=== PATIENT | male | born 1990 | race Two or more races ===

== ENCOUNTER 2017-04-12 16:31 | Emergency (ER) | payer OTHER ==
[2017-04-12 16:47] VITALS: BP 122/86; PULSE 87; RESP 18; TEMP 98.4; O2SAT 98
[2017-04-12] MEDS ORDERED: IBUPROFEN 600 MG TAB PO ONE (17:05)
--- NOTE | 2017-04-12 17:08 | EDPHY ---
H & P Time Seen by Provider: 04/12/17 16:51 HPI/ROS: This patient complains of dental pain and neck pain. He explains the he has dental caries intermittently gets tooth infections. Over the past 5 days or so he has had increasing pain to the left lower incisor that has significant decay as well as a right premolar also significant tooth decay in the past he has improved with antibiotics. He requests an antibiotic for this currently. He has been taking ibuprofen 600 mg per 6 hours with partial relief and notes no other exacerbating factors except for some tenderness when he chews food. 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 They had to move the entire household in a 24 hour period which involve a lot of lifting and carrying up and downstairs. He states that his neck pain is moderate intensity paraspinous location bilaterally this tooth pain is moderate currently and severe at times. ROS: No fevers or chills. No other constitutional symptoms HEENT: No facial swelling. No other complaints Pulmonary: No complaints new Cardiovascular: No lightheadedness Neuro: He reports having bilateral arm paresthesias when he 1st wakes up intermittently none currently. No focal numbness or weakness. No lower extremity symptoms. Musculoskeletal: No midline neck or back pain. GI: No nausea vomiting 10 point ROS is otherwise negative. Social History: Moved her household yesterday to new home. 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 He plans to go back [facility] in 2 weeks to see a dentist. Smoking Status: Current every day smoker Physical Exam: Physical Exam Vital signs are normal. General: No acute distress HEENT: Atraumatic. Oropharynx: Patient has significant tooth decay dull left lower canine incisor with associated tenderness mild gingival swelling but no fluctuance. Similarly, a right lower premolar has significant decay down to the gumline with tenderness but no gingival swelling or or fluctuance. No purulent drainage. No submental swelling. No other facial swelling. Eyes: Pupils equal and react to light. Extraocular motions are intact. Neck: Supple with no lymphadenopathy he has paraspinous muscular tenderness bilaterally. However retains full range of motion without increase in symptoms. Lungs: No respiratory distress. Cardiac: Brisk capillary refill is intact throughout. Skin: No rash or pallor. Neuro: GCS 15. Maintains 5/5 strength bilateral upper and lower extremities and 2+ symmetric patellar DTRs bilaterally. with no sensorimotor deficits. Initial differential diagnosis: Toothache due to dental caries/decay, apical abscess, neck muscle strain, doubt discogenic disease or other source of neck pain. I think that is transient arm paresthesias given her bilateral location and brief duration may have been related to hyperventilation. Constitutional: Initial Vital Signs Temperature (C) 36.9 C 04/12/17 16:35 Heart Rate 87 04/12/17 16:35 Respiratory Rate 18 04/12/17 16:35 Blood Pressure 122/86 H 04/12/17 16:35 O2 Sat (%) 98 04/12/17 16:35 O2 Delivery Mode Room Air Allergies/Adverse Reactions: No Known Allergies Allergy (Verified 04/12/17 16:47) Home Medications: Medication Instructions Recorded Methocarbamol [Robaxin 750 mg (*)] 750 - 1,500 mg PO QID PRN #30 tab 04/12/17 Penicillin V Potassium [Pen Vk 500 mg PO TID #42 tab 04/12/17 500mg (*)] traMADol [Ultram 50 mg (*)] 50 - 100 mg PO Q4 PRN #15 tab 04/12/17 MDM/Departure - MDM Medications Given: Discontinued Medications Ibuprofen (Motrin) 600 mg PO EDNOW ONE Stop: 04/12/17 17:06 Last Admin: 04/12/17 17:09 Dose: Not Given ED Course/Re-evaluation: Patient is offered ibuprofen but declines explaining will take ibuprofen home. Discussion: Dental caries with tooth pain but no overt abscess findings, Stef 's angina or other complicating factors. No clinical evidence of sepsis. Neck symptoms , history and findings are consistent with neck muscle strain. No neuro deficits or radicular findings currently. - Depart Disposition: Home, Routine, Self-Care Clinical Impression: Pain due to dental caries Neck muscle strain Qualifiers: Encounter type: initial encounter Qualified Code(s): S16.1XXA - Strain of muscle, fascia and tendon at neck level, initial encounter Condition: Good Instructions: Cervical Strain (ED), Dental Caries (ED), Toothache (ED) Additional Instructions: Diagnoses: 1. Toothache from dental caries 2. Neck muscle strain Plan: Continue ibuprofen-600 mg for 6 hours Add methocarbamol muscle relaxant and Tylenol or tramadol if needed for pain control No driving, alcohol work on the methocarbamol or tramadol. Return for any significant worsening despite the treatment plan Prescriptions: Methocarbamol [Robaxin 750 mg (*)] 750 - 1,500 mg PO QID PRN #30 tab PRN Reason: Muscle Spasms Penicillin V Potassium [Pen Vk 500mg (*)] 500 mg PO TID #42 tab traMADol [Ultram 50 mg (*)] 50 - 100 mg PO Q4 PRN #15 tab PRN Reason: breakthrough pain Referrals: NONE *PRIMARY CARE P,. [Primary Care Provider] - As per Instructions
== END 2017-04-12 17:25 | disposition home or self-care (01) ==
LOC: CED 16:31
DX: S16.1XXA Strain of muscle, fascia and tendon at neck level, initial encounter (principal); K02.9 Dental caries, unspecified; F17.200 Nicotine dependence, unspecified, uncomplicated; X58.XXXA Exposure to other specified factors, initial encounter

== ENCOUNTER → 2017-04-14 | Emergency (ER) | payer OTHER ==
[~2017-04-14] MED LIST: ACETAMINOPHEN 325 MG TAB PO ONE; HYDROCODONE/APAP 5/325 TAB PO ONE; NS 1,000 ML IV ONE
[2017-04-14 09:57] VITALS: TEMP 98; O2SAT 97
[2017-04-14 10:40] LABS: % IMMATURE GRANULYOCYTES 0.6 % (0.0-1.1); ABSOLUTE IMMATURE GRANULOCYTES 0.03 10^3/uL (0.00-0.10); ADD DIFF? NO; ADD MORPH? NO; ADD SCAN? NO; ATYPICAL LYMPHOCYTE FLAG 10 (0-99); FRAGMENT RBC FLAG 0 (0-99); HEMATOCRIT 45.2 % (40.0-51.0); HEMOGLOBIN 16.1 g/dL (13.7-17.5); LEFT SHIFT FLG 0 (0-99); LIPEMIA HEMOLYSIS FLAG 90 (0-99); MEAN CELL HEMOGLOBIN 29.1 pg (27.9-34.1); MEAN CELL HEMOGLOBIN CONCENTR. 35.6 g/dL (32.4-36.7); MEAN CELL VOLUME 81.6 fL (81.5-99.8); MEAN PLATELET VOLUME 9.2 fL (8.7-11.7); PLATELET CLUMPS FLAG 0 (0-99); PLATELET COUNT 280 10^3/uL (150-400); RED BLOOD CELL COUNT 5.54 10^6/uL (4.40-6.38)
[2017-04-14] MEDS: IBUPROFEN 600 MG TAB PO ONE ×2 (10:55→17:49)
[2017-04-14 11:01] LABS: ANION GAP 14 mEq/L (8-16); CALCIUM 8.9 mg/dL (8.5-10.4); CARBON DIOXIDE 24 mEq/l (22-31); CHLORIDE 99 mEq/L (97-110); CREATININE 0.6 mg/dL (0.7-1.3); GLOMERULAR FILTRATION RATE > 60; GLUCOSE 107 mg/dL (70-100); POTASSIUM 3.9 mEq/L (3.5-5.2); SODIUM 137 mEq/L (134-144)
--- NOTE | 2017-04-14 11:34 | EDPHY ---
H & P Time Seen by Provider: 04/14/17 09:44 HPI/ROS: 26-year-old male presents complaining of left-sided toothache that is ongoing he was seen here on April 12 for the same. At that time he was started penicillin, ibuprofen and tramadol and advised to see a dentist as soon as possible. He plans to see a dentist in early May when he returns to [facility]. His other concerned this morning as he feels like he is having difficulty urinating. He was also given Robaxin but has not been taking. Review of systems General no fever no chills no weakness HEENT no eye pain no eye discharge. No eye redness, no sore throat Respiratory no cough, no shortness of breath Cardiac no chest pain, no peripheral edema GI no abdominal pain, no diarrhea, no constipation, no nausea, no vomiting no flank pain, no hematuria, no dysuria, positive difficulty urinating Musculoskeletal no myalgias, no joint pain Heme no easy bruising, no easy bleeding Endo no polyuria, no polydipsia Skin no rashes, no pruritus Neuro no syncope, no dizziness, no headaches Psych is no suicidal ideation, no homicidal ideation Past Medical/Surgical History: no significant past medical history recent history involves a visit on April 12, 2017 for dental caries and likely dental abscess started on penicillin. Social History: Student Smoking Status: Current every day smoker Physical Exam: 26-year-old male alert and oriented moderate distress secondary to tooth pain, nontoxic appearance, afebrile no respiratory distress atraumatic normocephalic oropharynx no swelling, no tongue elevation, tolerating his own secretions left 1st and 2nd molar with severe caries, mild erythema of gum line no drainage no trismus neck supple, nontender lungs clear to auscultation bilaterally Heart regular rate and rhythm without murmur rub or gallop abdomen NABS soft, no CVA tenderness, no suprapubic fullness extremities no cyanosis clubbing or edema skin no rash Constitutional: Initial Vital Signs Temperature (C) 36.6 C 04/14/17 09:46 Heart Rate 78 04/14/17 09:46 Respiratory Rate 18 04/14/17 09:46 Blood Pressure 116/74 04/14/17 09:46 O2 Sat (%) 97 04/14/17 09:46 O2 Delivery Mode Room Air Allergies/Adverse Reactions: No Known Allergies Allergy (Verified 04/12/17 16:47) Home Medications: Medication Instructions Recorded Methocarbamol [Robaxin 750 mg (*)] 750 - 1,500 mg PO QID PRN #30 tab 04/12/17 Penicillin V Potassium [Pen Vk 500 mg PO TID #42 tab 04/12/17 500mg (*)] traMADol [Ultram 50 mg (*)] 50 - 100 mg PO Q4 PRN #15 tab 04/12/17 Acetaminophen [Pain Relief] 325 mg PO Q6 PRN #30 capsule 04/14/17 Hydrocodone/Acetaminophen [[place] 1 - 2 tab PO Q6H PRN #16 tab 04/14/17 5/325 (*)] Ibuprofen 600 mg PO Q8 PRN #30 tablet 04/14/17 Medical Decision Making ED Course/Re-evaluation: patient seen and evaluated for toothache as well as concern that he is having difficulty urinating and he is concerned that his kidneys may be failing. Exam significant for severe caries and likely dental abscess of left lower 1st molar otherwise exam unremarkable labs sent to evaluate kidney function patient hydrated to encourage urination CBC within normal limits BMP within normal limits urinalysis normal impression dental abscess sensation of urinary retention, able to urinate freely, urinalysis normal discussed with pharmacist at times ibuprofen can cause this sensation plan continue penicillin encourage patient to see dentist as soon as possible stopped tramadol and ibuprofen given prescription for [place] - Data Points Laboratory Results: Laboratory Results 04/14/17 10:38 04/14/17 10:38 04/14/17 04/14/17 04/14/17 11:30 10:38 10:38 WBC 4.77 10^3/uL 10^3/uL (3.80-9.50) RBC 5.54 10^6/uL 10^6/uL (4.40-6.38) Hgb 16.1 g/dL g/dL (13.7-17.5) Hct 45.2 % % (40.0-51.0) MCV 81.6 fL fL (81.5-99.8) MCH 29.1 pg pg (27.9-34.1) MCHC 35.6 g/dL g/dL (32.4-36.7) RDW 13.0 % % (11.5-15.2) Plt Count 280 10^3/uL 10^3/uL (150-400) MPV 9.2 fL fL (8.7-11.7) Neut % (Auto) 31.3 % L % (39.3-74.2) Lymph % (Auto) 47.6 % H % (15.0-45.0) [place] % (Auto) 9.0 % % (4.5-13.0) Eos % (Auto) 10.7 % H % (0.6-7.6) Baso % (Auto) 0.8 % % (0.3-1.7) Nucleat RBC Rel Count 0.0 % % (0.0-0.2) Absolute Neuts (auto) 1.49 10^3/uL L 10^3/uL (1.70-6.50) Absolute Lymphs (auto) 2.27 10^3/uL 10^3/uL (1.00-3.00) Absolute Monos (auto) 0.43 10^3/uL 10^3/uL (0.30-0.80) Absolute Eos (auto) 0.51 10^3/uL H 10^3/uL (0.03-0.40) Absolute Basos (auto) 0.04 10^3/uL 10^3/uL (0.02-0.10) Absolute Nucleated RBC 0.00 10^3/uL 10^3/uL (0-0.01) Immature Gran % 0.6 % % (0.0-1.1) Immature Gran # 0.03 10^3/uL 10^3/uL (0.00-0.10) Sodium 137 mEq/L mEq/L (134-144) Potassium 3.9 mEq/L mEq/L (3.5-5.2) Chloride 99 mEq/L mEq/L (97-110) Carbon Dioxide 24 mEq/l mEq/l (22-31) Anion Gap 14 mEq/L mEq/L (8-16) BUN 12 mg/dL mg/dL (7-23) Creatinine 0.6 mg/dL L mg/dL (0.7-1.3) Estimated GFR > 60 Glucose 107 mg/dL H mg/dL (70-100) Calcium 8.9 mg/dL mg/dL (8.5-10.4) Urine Color YELLOW Urine Appearance CLEAR Urine pH 6.0 (5.0-7.5) Ur Specific [place] 1.015 (1.002-1.030) Urine Protein NEGATIVE (NEGATIVE) Urine Ketones NEGATIVE (NEGATIVE) Urine Blood NEGATIVE (NEGATIVE) Urine Nitrate NEGATIVE (NEGATIVE) Urine Bilirubin NEGATIVE (NEGATIVE) Urine Urobilinogen 0.2 EU EU (0.2-1.0) Ur Leukocyte Esterase NEGATIVE (NEGATIVE) Urine Glucose NEGATIVE (NEGATIVE) Medications Given: Discontinued Medications Acetaminophen (Tylenol) 325 mg PO EDNOW ONE Stop: 04/14/17 10:29 Last Admin: 04/14/17 10:56 Dose: 325 mg Acetaminophen (Tylenol) 650 mg PO EDNOW ONE Stop: 04/14/17 10:29 Last Admin: 04/14/17 10:58 Dose: 650 mg Hydrocodone Bitart/Acetaminophen ([place] 5/325) 2 tab PO EDNOW ONE Stop: 04/14/17 12:01 Last Admin: 04/14/17 12:07 Dose: 2 tab Sodium Chloride (Ns) 1,000 mls @ 0 mls/hr IV ONCE ONE PRN Reason: Wide Open Stop: 04/14/17 10:28 Last Admin: 04/14/17 10:41 Dose: 1,000 mls Departure - Departure Disposition: Home, Routine, Self-Care Clinical Impression: Dental abscess Condition: Good Instructions: Dental Abscess (ED) Additional Instructions: Your blood studies are normal. There is no sign of kidney dysfunction. Referrals: NONE *PRIMARY CARE P,. [Primary Care Provider] - As per Instructions Stand Alone Forms: Work Excuse Prescriptions: Acetaminophen [Pain Relief] 325 mg PO Q6 PRN #30 capsule PRN Reason: Pain, Moderate Hydrocodone/Acetaminophen [[place] 5/325 (*)] 1 - 2 tab PO Q6H PRN #16 tab PRN Reason: Pain, Moderate Ibuprofen 600 mg PO Q8 PRN #30 tablet PRN Reason: Pain, Moderate
[2017-04-14 11:37] LABS: COLOR YELLOW; LEUKOCYTE ESTERASE,URINE NEGATIVE (NEGATIVE); NITRITE,URINE NEGATIVE (NEGATIVE)
[2017-04-14 13:33] VITALS: BP 123/79; PULSE 76; RESP 16
== END | disposition home or self-care (01) ==
LOC: CED 09:42
DX: K04.7 Periapical abscess without sinus (principal); F17.200 Nicotine dependence, unspecified, uncomplicated
CPT/HCPCS: 80048-PO; 81003-PO; 85025-PO

== ENCOUNTER 2017-04-17 15:11 | Emergency (ER) | payer OTHER ==
[2017-04-17 15:24] VITALS: BP 117/72; PULSE 84; RESP 16; TEMP 97.7; O2SAT 97
--- NOTE | 2017-04-17 15:32 | EDPHY ---
H & P Time Seen by Provider: 04/17/17 15:17 HPI/ROS: 26-year-old male presents complaining of dental pain. No Fevers no chills no nausea vomiting diarrhea. No difficulty urinating. No difficulty swallowing no tongue swelling. This is patient's 3rd visit for similar complaints, he plans to see a dentist when he returns to [facility] in approximately 2-3 weeks Past Medical/Surgical History: No significant past medical history Social History: Student Smoking Status: Current every day smoker Physical Exam: 26-year-old male alert and oriented no acute distress nontoxic appearance no trismus no drooling, afebrile Atraumatic normocephalic Oropharynx Multiple dental caries, no gross edema or erythema and no purulent discharge No tongue elevation Neck supple Lungs clear to auscultation Heart regular rate and rhythm without murmur rub or gallop Skin no rash Constitutional: Initial Vital Signs Temperature (C) 36.5 C 04/17/17 15:21 Heart Rate 84 04/17/17 15:21 Respiratory Rate 16 04/17/17 15:21 Blood Pressure 117/72 04/17/17 15:21 O2 Sat (%) 97 04/17/17 15:21 O2 Delivery Mode Room Air Allergies/Adverse Reactions: No Known Allergies Allergy (Verified 04/17/17 15:24) Home Medications: Medication Instructions Recorded Methocarbamol [Robaxin 750 mg (*)] 750 - 1,500 mg PO QID PRN #30 tab 04/12/17 Penicillin V Potassium [Pen Vk 500 mg PO TID #42 tab 04/12/17 500mg (*)] traMADol [Ultram 50 mg (*)] 50 - 100 mg PO Q4 PRN #15 tab 04/12/17 Acetaminophen [Pain Relief] 325 mg PO Q6 PRN #30 capsule 04/14/17 Hydrocodone/Acetaminophen [[place] 1 - 2 tab PO Q6H PRN #16 tab 04/14/17 5/325 (*)] Ibuprofen 600 mg PO Q8 PRN #30 tablet 04/14/17 Clindamycin HCl [Clindamycin] 300 mg PO TID #30 cap 04/17/17 Hydrocodone/APAP 5/325 [[place] 1 tab PO Q8 #21 tab 04/17/17 5/325 (*)] Medical Decision Making ED Course/Re-evaluation: Patient here requesting a change in his antibiotics as well as more pain medicine until he can arrange to see the dentist. Impression Dental caries possible dental abscess No evidence of sepsis Plan Clindamycin 300 three times daily times 10 days [place] 1 p.o. Q 8 x 7 days Advised still to follow up with dentist if at all possible Departure - Departure Disposition: Home, Routine, Self-Care Clinical Impression: Dental caries Condition: Good Instructions: Dental Abscess (ED) Referrals: NONE *PRIMARY CARE P,. [Primary Care Provider] - As per Instructions Prescriptions: Clindamycin HCl [Clindamycin] 300 mg PO TID #30 cap Hydrocodone/APAP 5/325 [[place] 5/325 (*)] 1 tab PO Q8 #21 tab
== END 2017-04-17 15:40 | disposition home or self-care (01) ==
LOC: CED 15:11
DX: K02.9 Dental caries, unspecified (principal); F17.200 Nicotine dependence, unspecified, uncomplicated